=== PATIENT | male | born 1980 | race Hispanic/Latino ===

== ENCOUNTER 2020-07-17 16:14 | Emergency (ER) | payer SELFPAY ==
--- NOTE | 2020-07-17 16:17 | ED.SKABFB ---
HPI - Skin/Abscess/Foreign Bdy General Chief complaint: Skin/Abscess/Foreign Body Stated complaint: Rash Time Seen by Provider: 07/17/20 16:29 Source: patient and RN notes reviewed Mode of arrival: ambulatory Limitations: no limitations History of Present Illness HPI narrative: 39-year male presents concern for right sided torso rash that is painful and itchy. Reports the rash started yesterday. Denies any systemic symptoms such as malaise, fatigue, fever. Denies any swollen lips, swollen tongue, difficulty breathing, difficulty swallowing. MD complaint: rash Related Data Home Medications Medication Instructions Recorded Confirmed No Home Medications 07/17/20 07/17/20 Allergies Allergy/AdvReac Type Severity Reaction Status Date / Time No Known Allergies Allergy Unverified 07/17/20 16:25 Review of Systems Review of Systems: Narrative: CONSTITUTIONAL: Denies malaise, chills, sweats, or fever. EYES: Denies visual changes, redness, or discharge. ENT: Denies swollen lips, swollen tongue CARDIOVASCULAR: Denies chest pain, palpitations, or edema. RESPIRATORY: Denies cough or dyspnea. SKIN: Reports painful, itchy rash on the right torso MUSCULOSKELETAL: Denies myalgia. NEUROLOGIC: Denies numbness, weakness, or headache. All systems reviewed & are unremarkable except as noted in HPI and below PMFSH Comments At time of signature, agree with nursing past medical, surgical, social and family history. There is no relevant family history pertinent to the presenting complaint Exam Narrative: Exam Narrative: GENERAL: Well-appearing, well-nourished, and in no acute distress. HEAD: Normocephalic, atraumatic. EYES: PERRLA, conjunctivae clear, and EOMI. ENT: Mucous membranes moist. Oropharynx without edema, erythema or lesions. NECK: Supple. No lymphadenopathy CHEST: Clear to auscultation. No respiratory distress. HEART: Regular rate and rhythm. SKIN: Warm, dry. Zosteriform rash noted to the right torso NEURO: Alert and oriented x3. PSYCH: Normal mood and affect Course Course Emergency Course: Patient is aware of diagnosis, understands and agrees to treatment plan. Anticipatory guidance given. Patient agrees to follow-up as directed and is aware of reasons to seek care at the emergency department. Portions of this record may have been created with voice recognition software Vital Signs Vital signs: Vital Signs Temperature 97.5 F L 07/17/20 16:31 Pulse Rate 76 07/17/20 16:31 Respiratory Rate 16 07/17/20 16:31 Blood Pressure 131/72 07/17/20 16:31 Pulse Oximetry 98 07/17/20 16:31 Temperature 97.5 F L 07/17/20 16:31 Pulse Rate 76 07/17/20 16:31 Respiratory Rate 16 07/17/20 16:31 Blood Pressure 131/72 07/17/20 16:31 Pulse Oximetry 98 07/17/20 16:31 Reviewed. MDM - Skin/Abscess/Foreign Bdy MDM Narrative Medical decision making narrative: Does not appear at this time to be erythema multiforme, bullous, SJS, TEN; no evidence at this time to suggest RMSF, endocarditis or Lyme disease; patient looks well, nontoxic and is tolerating oral intake; no neurologic signs or symptoms; no headache, photophobia or neck pain; afebrile; appropriate for initial outpatient treatment; discussed the importance of follow-up, patient agrees; question, viral exanthema, contact dermatitis, allergic dermatitis, eczema, urticaria, shingles. No soft palate or uvula edema, no tongue, lip edema or other mucosal involvement, no respiratory compromise, no stridor, no wheezing, no wheezing, no history of syncope, no hypotension, no nausea, vomiting, or diarrhea. Instructed patient to go to nearest ER immediately for any worsening symptoms including but not limited to: fever, spreading rash, pain, sore throat, headache, dizziness, chest pain, trouble breathing, or any symptoms concerning to the patient. Critical Care Time Critical Care Time Critical Care Time: No Discharge Plan Discharge Clinical Impression: Melisa
[2020-07-17 16:31] VITALS: BP 131/72; PULSE 76; RESP 16; TEMP 36.4; O2SAT 98
== END 2020-07-17 16:40 | disposition home or self-care (01) ==
PROVIDERS: Emergency Provider Nurse Practitioner
DX: B02.9 Zoster without complications (principal)
CPT/HCPCS: 99213; G0463

== ENCOUNTER 2020-11-26 13:53 | Emergency (ER) | payer SELFPAY ==
--- NOTE | ~2020-11-26 | XR_ITS ---
EXAMINATION: XR chest 2V 11/26/2020 14:13 INDICATION: Chest pain PROCEDURE: 2 view chest COMPARISON: 06/09/2017 FINDINGS: The lungs are clear. The cardiomediastinal silhouette is within normal limits. There are no pleural effusions. There is no pneumothorax suspected. IMPRESSION: 1: NO ACUTE CARDIOPULMONARY DISEASE. Reviewed, dictated and finalized at location A.
--- NOTE | ~2020-11-26 | CT_ITS ---
EXAMINATION: CT brain wo con DATE: 11/26/2020 17:26 INDICATION: Left arm numbness. Paresthesias. TECHNIQUE: Computed tomography (CT) of the head was performed without intravenous contrast. The mA wa s adjusted according to patient size. Iterative reconstruction technique was employed. The dose-lengt h product was 605.33 mGy-cm. COMPARISON: Head CT 01/25/2017 FINDINGS: There is no intracranial hemorrhage, acute infarction, or abnormal intracranial mass lesion . The ventricles are normal in size. The orbits are normal. There is mild mucosal thickening in the p aranasal sinuses. The mastoid air cells are normal. IMPRESSION: 1. Normal brain. Reviewed, dictated and finalized at location A. IMPRESSION: 1. Normal brain.
--- NOTE | 2020-11-26 13:55 | ECG_ITS ---
Measurements Intervals [place] Rate: 80 P: 35 DE: 155 QRS: 52 QRSD: 94 T: 50 QT: 379 QTc: 439 Interpretive Statements SINUS RHYTHM INCOMPLETE RIGHT BUNDLE BRANCH BLOCK BORDERLINE ECG Electronically Signed On 11-26-2020 16:35:49 CDT by Joel Multani D.O.
[2020-11-26 14:16] LABS: Basophils Percent Auto 0.4 % (0.2-1.2); Eosinophils Percent Auto 0.6 % (0-4.4); Hemoglobin 15.3 g/dL (14.0-18.0); Immature Granulocyte Absolute 0.04 K/mm3 (0.00-0.031); Immature Granulocyte Percent A 0.6 % (0-0.5); Lymphocytes Absolute Auto 3.07 K/mm3 (0.9-3.2); Lymphocytes Percent Auto 44.6 % (18.3-44.2); Mean Corpuscular HGB Conc 35.6 g/dl (32-36); Mean Corpuscular Hemoglobin 32.5 pg (26-34); Mean Corpuscular Volume 91.3 fl (80-100); Mean Platelet Volume 11.2 fl (7.4-10.4); Monocytes Absolute Auto 0.4 K/mm3 (0.1-0.6); Monocytes Percent Auto 5.1 % (2.6-8.5); Neutrophils Absolute Auto 3.4 K/mm3 (1.3-6.7); Neutrophils Percent Auto 48.7 % (45.5-73.1); Platelet Count Result 188 k/mm3 (150-375); Red Blood Count 4.71 M/mm3 (4.6-6.20); Red Cell Distribution Width 12.2 % (11.5-14.5); White Blood Count 6.9 K/mm3 (4.5-10.0)
[2020-11-26 14:31] LABS: Anion Gap 13 mmol/L (8-16); Blood Urea Nitrogen 10 mg/dL (9-20); Calcium 9.3 mg/dL (8.4-10.2); Carbon Dioxide 24 mmol/L (22-30); Chloride 102 mmol/L (98-107); Estimated Glomerular Filt Rate > 60; Glucose 104 mg/dL (65-110); Potassium 3.3 mmol/L (3.4-5.0); Sodium 139 mmol/L (137-145)
[2020-11-26 14:36] LABS: INR 0.9; Prothrombin Time 12.3 Seconds (11.1-14.7)
[2020-11-26 14:37] LABS: Partial Thromboplastin Time 24.1 SECONDS (22.3-36.8)
[2020-11-26 14:41] VITALS: BP 132/90; PULSE 82; RESP 18; TEMP 37.2; O2SAT 100
[2020-11-26 14:43] LABS: Troponin I < 0.012 ng/mL (0.000-0.034)
[2020-11-26 17:32] LABS: Troponin I < 0.012 ng/mL (0.000-0.034)
--- NOTE | 2020-11-26 17:36 | ED.CHESTPAIN ---
HPI - Chest Pain General Chief Complaint: Chest Pain Stated Complaint: chest pressure Time Seen by Provider: 11/26/20 16:58 Source: patient Mode of arrival: ambulatory Limitations: language barrier (patient's family member is translating) History of Present Illness HPI narrative: This is a 40 year old male that presents to the ER for an episode of chest pain today. Reports an episode of chest pressure. He was outside working on a pool. Reports at that time he felt tingling in his left arm and his tongue. Reports this lasted about 30 minutes. Denies any current symptoms. Denies fever, cough, shortness of breath, abdominal pain, vomiting, weakness or numbness. Related Data Home Medications Medication Instructions Recorded Confirmed No Home Medications 07/17/20 11/26/20 Allergies Allergy/AdvReac Type Severity Reaction Status Date / Time No Known Allergies Allergy Verified 11/26/20 16:42 Review of Systems Review of Systems: CONSTITUTIONAL: Denies fever CARDIOVASCULAR: Reports chest pain. Denies edema. RESPIRATORY: Denies dyspnea. GASTROINTESTINAL: Denies abdominal pain, nausea, vomiting All systems reviewed & are unremarkable except as noted in HPI and below PMFSH Past Medical History Medical History (Updated 11/26/20 @ 19:23 by Nay Ware PA-C) No active medical problems Social History Social History (Updated 11/26/20 @ 17:41 by Nay Ware PA-C) Smoking status: Never smoker Gender identity (if verbalized by the patient): Male Exam Narrative: GENERAL: Well-appearing, well-nourished, and in no acute distress. HEAD: Normocephalic, atraumatic. EYES: PERRLA and EOMI. ENT: Nares clear, no rhinorrhea or epistaxis. Mucous membranes moist. Oropharynx without tonsillar hypertrophy exudate or other lesions. Bilateral TMs pearly brush non-bulging NECK: Supple. No adenopathy or masses. CHEST: Clear to auscultation. No respiratory distress. No wheezes rales or rhonchi HEART: Regular rate and rhythm. No murmur heard. Normal peripheral pulses. ABDOMEN: Soft, nontender, nondistended, normal active bowel sounds. EXTREMITIES: Normal range of motion. No edema. Strength equal in bilateral upper and lower extremities (5/5) SKIN: Warm, dry, no rash. NEURO: No focal deficits. Alert and oriented x3. Cranial nerves II through XII grossly intact PSYCH: Normal mood and affect Course Vital Signs Vital signs: Vital Signs Temperature 98.9 F 11/26/20 14:41 Pulse Rate 82 11/26/20 14:41 Respiratory Rate 18 11/26/20 14:41 Blood Pressure 132/90 11/26/20 14:41 Pulse Oximetry 100 11/26/20 14:41 Temperature 98.9 F 11/26/20 14:41 Pulse Rate 70 11/26/20 19:04 Respiratory Rate 20 11/26/20 19:04 Blood Pressure 124/73 11/26/20 19:04 Pulse Oximetry 99 11/26/20 19:04 MDM - Chest Pain MDM Narrative Medical decision making narrative: Patient presents to the emergency department for an episode of chest pain earlier today associated with some paresthesias. He is afebrile and nontoxic-appearing. He is neurologically intact. ECG without concerning findings. Metabolic panel with mild hypokalemia. Patient given a dose of potassium in the ED. EKG without concerning changes. Baseline and troponin are negative. Chest x-ray is clear. CT scan of the brain is normal. Patient has had no further symptoms while in the ED. He is stable and felt appropriate for further outpatient evaluation. He was given warnings to return to the ER Lab Data Attestation: I reviewed the patient's lab results. Result diagrams: 11/26/20 14:09 11/26/20 14:09 Labs: Lab Results 11/26/20 11/26/20 11/26/20 Range/Units 14:09 14:09 14:09 WBC 6.9 (4.5-10.0) K/mm3 RBC 4.71 (4.6-6.20) M/mm3 Hgb 15.3 (14.0-18.0) g/dL Hct 43.0 (42.0-52.0) % MCV 91.3 (80-100) fl MCH 32.5 (26-34) pg MCHC 35.6 (32-36) g/dl RDW 12.2 (11.5-14.5) % Plt Count 188 (150-375)
[2020-11-26 18:28] VITALS: BP 141/80; PULSE 68; RESP 20; O2SAT 99
[2020-11-26 19:04] VITALS: BP 124/73; PULSE 70; RESP 20; O2SAT 99
[2020-11-26] MEDS: POTASSIUM CHLORIDE 20 MEQ TABLET 40 MEQ PO (19:05)
[2020-11-26 19:28] VITALS: BP 124/73; PULSE 69; RESP 17; TEMP 36.7; O2SAT 97
== END 2020-11-26 19:30 | disposition home or self-care (01) ==
PROVIDERS: Emergency Provider Emergency Medicine
DX: R07.9 Chest pain, unspecified (principal); R20.2 Paresthesia of skin
CPT/HCPCS: 36415; 70450; 71046; 80048; 84484; 85025; 85610; 85730; 93005; 99284; A9270

== ENCOUNTER 2024-08-22 08:29 | Emergency (ER) | payer SELFPAY ==
[2024-08-22 08:35] VITALS: BP 131/85; PULSE 83; RESP 16; TEMP 36.7; O2SAT 100
--- NOTE | 2024-08-22 08:46 | ED_ITS ---
HPI - General Adult General Chief complaint: Unspecified Stated complaint: frequent urination, weight loss, dry mouth Time Seen by Provider: 08/22/24 08:44 Source: patient Mode of arrival: ambulatory Limitations: no limitations History of Present Illness HPI narrative: 43 years old male does not speak [place] came to the ED with another colleague is speaking [place] complaining of frequent urination, thirsty feeling, frequent drinking and losing weight over the last few months. Patient is healthy otherwise. He denies any fever or chills or nausea or vomiting. Strong family history of diabetes. Related Data Allergies Allergy/AdvReac Type Severity Reaction Status Date / Time No Known Allergies Allergy Verified 08/22/24 08:51 Review of Systems 2 Review of Systems: All systems reviewed & are unremarkable except as noted in HPI and below PMFSH Past Medical History Medical History No active medical problems Social History Social History Smoking status: Never smoker Gender identity (if verbalized by the patient): Male Exam 2 Narrative: General appearance: Well-developed, well-nourished Skin: Normal color Head: Normocephalic, nontraumatic Eyes: Clear conjunctiva ENT: Oropharynx normal, ears normal, nose normal Neck: Supple, nontender Chest and respiratory: Airway patent, no respiratory distress, no accessory muscle use Heart: Regular rate/rhythm Abdomen: Soft, nontender, no organomegaly, quiet bowel sounds Vascular: Normal peripheral pulses, normal capillary refill. Musculoskeletal: Normal range of motion, nontender back Neurologic: Alert and oriented ?3, MEDICAID ANALYST is normal as tested, no gross motor deficit Course Vital Signs Vital signs: Vital Signs Temperature 36.7 C 08/22/24 08:35 Pulse Rate 83 08/22/24 08:35 Respiratory Rate 16 08/22/24 08:35 Blood Pressure 131/85 08/22/24 08:35 Pulse Oximetry 100 08/22/24 08:35 Oxygen Delivery Room Air 08/22/24 08:35 Temperature 36.7 C 08/22/24 08:35 Pulse Rate 83 08/22/24 09:16 Respiratory Rate 14 08/22/24 09:16 Blood Pressure 121/87 08/22/24 09:16 Pulse Oximetry 99 08/22/24 09:16 Oxygen Delivery Room Air 08/22/24 08:35 Medical Decision Making MDM Narrative Medical decision making narrative: Patient presents with hyperglycemia like symptoms Vital signs are stable Physical examination is unremarkable Blood workup today includes CBC, CMP, lipase showed blood glucose of 371, alkaline phosphatase 265 Urinalysis 3+ glucose, 4+ ketone Diagnosis new diagnosis of diabetes Discharged on metformin 500 b.i.d. and diabetic diet. The pt was discharged to home.the pt,s condition upon discharge was fair,education was provided to the pt in reference to the final impression,discharge study results,treatment,prognosis and need for follow up . Differential Diagnosis Differential Diagnosis: As above Vital Signs Vital Signs: Vital Signs Temperature 36.7 C 08/22/24 08:35 Pulse Rate 83 08/22/24 08:35 Respiratory Rate 16 08/22/24 08:35 Blood Pressure 131/85 08/22/24 08:35 Pulse Oximetry 100 08/22/24 08:35 Oxygen Delivery Room Air 08/22/24 08:35 Temperature 36.7 C 08/22/24 08:35 Pulse Rate 83 08/22/24 09:16 Respiratory Rate 14 08/22/24 09:16 Blood Pressure 121/87 08/22/24 09:16 Pulse Oximetry 99 08/22/24 09:16 Oxygen Delivery Room Air 08/22/24 08:35 Lab Data 08/22/24 09:01 08/22/24 09:01 Labs: Lab Results 08/22/24 08/22/24 08/22/24 Range/Units 08:50 09:00 09:01 WBC 6.2 (4.5-10.0) K/mm3 RBC 4.92 (4.6-6.20) M/mm3 Hgb 16.0 (14.0-18.0) g/dL Hct 45.3 (42.0-52.0) % MCV 92.1 (80-100) fl MCH 32.5 (26-34) pg MCHC 35.3 (32-36) g/dl RDW 12.8 (11.5-14.5) % Plt Count 168 (150-375) k/mm3 MPV 11.5 H (7.4-10.4) fl Immature Gran % (Auto) 0.5 (0-0.5) % Neut % (Auto) 60.3 (45.5-73.1) % Lymph % (Auto) 26.8 (18.3-44.2) % [place] % (Auto) 8.8 H (2.6-8.5) % Eos % (Auto) 3.1 (0-4.4) % Baso % (Auto) 0.5 (0.2-1.2) % Lymph # (Auto) 1.65 (0.9-3.2) K/mm3 [place] # (Auto) 0.5 (0.1-0.6) K/mm3 Eos # (Auto) 0.2 (0-0.3) K/mm3 Baso # (Auto) 0.0 (0.0-0.1) K/mm3 Abs Immat Gran (auto) 0.03 (0.00-0.031) K/mm3 Absolute Neuts (auto) 3.7 (1.3-6.7) K/mm3 Absolute Nucleated RBC 0.000 (0.0-0.012) K/mm3 Nucleated RBC % 0.0 (0.0-0.2) % Sodium 135 L (137-145) mmol/L Potassium 4.4 (3.4-5.0) mmol/L Chloride 96 L (98-107) mmol/L Carbon Dioxide 18 L (22-30) mmol/L Anion Gap 21 H (4-12) mmol/L BUN 10 (9-20) mg/dL Creatinine 0.70 (0.7-1.3) mg/dL Estim Creat Clear Calc 108 ml/min Estimated GFR > 60 (59 - ) Glucose 371 H (65-110) mg/dL POC Capillary Glucose 370 H (65-105) mg/dl Calcium 9.6 (8.4-10.2) mg/dL Total Bilirubin 1.1 (0.2-1.3) mg/dL AST 35 (17-59) U/L ALT 43 (6-50) U/L Alkaline Phosphatase 265 H (38-126) U/L Total Protein 9.0 H (6.3-8.2) g/dL Albumin 5.1 (3.5-5.1) g/dL Urine Color Yellow (Yellow) Urine Appearance Clear (Clear) Urine pH 5.0 (5.0-9.0) Ur Specific [place] 1.041 H (1.001-1.035) Urine Protein Trace (Negative) mg/dL Urine Glucose (UA) 3+ H (Negative) mg/dL Urine Ketones 4+ H (Negative) mg/dL Ur Blood (Man) Negative (Negative) Urine Nitrate Negative (Negative) Urine Bilirubin Negative (Negative) Urine Urobilinogen 0.2 (<2.0) mg/dL Leukocyte Esterase Rfl Negative (Negative) [facility]/UL Urine RBC 0-2 (0-2) /hpf Urine WBC 0-5 (0-3) /hpf Ur Squamous Epith Cells None seen (Few) /hpf Urine Bacteria None seen /hpf Urine Casts 0-2 Critical Care Time Critical Care Time Critical Care Time: No Discharge Plan Discharge Clinical Impression: Hyperglycemia due to diabetes mellitus Patient Disposition: Home Condition: Stable Instructions: Meal Planning with Diabetes Exchanges (DC), Diabetic Hyperglycemia (ED) Additional Instructions: Return if symptoms are worsening , call your family physician for appointment, take Tylenol as as needed for aches and pain, continue home medications. Patient Language: [place] Prescriptions: New metformin 500 mg tablet 500 mg PO BID Qty: 60 0RF Follow-up/Referrals: Owen Harden MD [Physician] - 08/23/24 UNKNOWN,DOCTOR [Primary Care Provider] -
[2024-08-22 08:54] LABS: Glucose Point of Care 370 mg/dl (65-105)
[2024-08-22 08:59] VITALS: PULSE 82
[2024-08-22 09:01] VITALS: BP 125/85; PULSE 86; RESP 14; O2SAT 99
[2024-08-22 09:06] LABS: Basophils Percent Auto 0.5 % (0.2-1.2); Eosinophils Absolute Auto 0.2 K/mm3 (0-0.3); Eosinophils Percent Auto 3.1 % (0-4.4); Hematocrit 45.3 % (42.0-52.0); Immature Granulocyte Absolute 0.03 K/mm3 (0.00-0.031); Immature Granulocyte Percent A 0.5 % (0-0.5); Lymphocytes Absolute Auto 1.65 K/mm3 (0.9-3.2); Lymphocytes Percent Auto 26.8 % (18.3-44.2); Mean Corpuscular HGB Conc 35.3 g/dl (32-36); Mean Corpuscular Hemoglobin 32.5 pg (26-34); Mean Corpuscular Volume 92.1 fl (80-100); Mean Platelet Volume 11.5 fl (7.4-10.4); Monocytes Absolute Auto 0.5 K/mm3 (0.1-0.6); Monocytes Percent Auto 8.8 % (2.6-8.5); Neutrophils Absolute Auto 3.7 K/mm3 (1.3-6.7); Neutrophils Percent Auto 60.3 % (45.5-73.1); Platelet Count Result 168 k/mm3 (150-375); Red Blood Count 4.92 M/mm3 (4.6-6.20); Red Cell Distribution Width 12.8 % (11.5-14.5); White Blood Count 6.2 K/mm3 (4.5-10.0)
[2024-08-22 09:16] VITALS: BP 121/87; PULSE 83; RESP 14; O2SAT 99
[2024-08-22 09:16] LABS: Alanine Aminotransferase 43 U/L (6-50); Albumin Level 5.1 g/dL (3.5-5.1); Alkaline Phosphatase 265 U/L (38-126); Anion Gap 21 mmol/L (4-12); Aspartate Amino Transferase 35 U/L (17-59); Bilirubin,Total 1.1 mg/dL (0.2-1.3); Blood Urea Nitrogen 10 mg/dL (9-20); Calcium 9.6 mg/dL (8.4-10.2); Carbon Dioxide 18 mmol/L (22-30); Chloride 96 mmol/L (98-107); Estimated CRCL calculation 108 ml/min; Estimated Glomerular Filt Rate > 60; Glucose 371 mg/dL (65-110); Potassium 4.4 mmol/L (3.4-5.0); Sodium 135 mmol/L (137-145)
[2024-08-22 09:32] LABS: Add Urine Microscopic? YES; Appearance Urine Clear (Clear); Bacteria Urine None Seen /hpf; Bilirubin Urine Negative (Negative); Blood Urine Negative (Negative); Color Urine Yellow (Yellow); Glucose Urine UA 3+ mg/dL (Negative); Ketones Urine 4+ mg/dL (Negative); Leukocyte Esterase Ur Negative LEU/UL (Negative); Nitrate Urine Negative (Negative); Non Pathogenic Casts 0-2; Protein Urine Trace mg/dL (Negative); RBC Urine 0-2 /hpf (0-2); Specific Grav Ur 1.041 (1.001-1.035); Squamous Epithelial Cell Urine None Seen /hpf (Few); Urobilinogen Urine 0.2 mg/dL (<2.0); WBC Urine 0-5 /hpf (0-3)
[2024-08-22] MEDS: SODIUM CHLORIDE 0.9% IV 1,000 ML 999 ML (10:08)
[2024-08-22 11:30] LABS: Glucose Point of Care 275 mg/dl (65-105)
[2024-08-22 11:31] VITALS: BP 123/82; PULSE 84; RESP 12; O2SAT 100
[2024-08-22] MEDS: INSULIN HUMAN REGULAR (*BKC) 100 UNITS/ML 6 UNITS SUB-Q (11:40)
== END 2024-08-22 11:45 | disposition home or self-care (01) ==
PROVIDERS: Emergency Provider Emergency Medicine
DX: E11.65 Type 2 diabetes mellitus with hyperglycemia (principal); Z79.84 Long term (current) use of oral hypoglycemic drugs
CPT/HCPCS: 36415; 80053; 81001; 82948; 85025; 99283; J1815; J7030